=== PATIENT | female | born 1950 | race African-American/Black ===

== ENCOUNTER 2017-01-31 17:06 | Inpatient (IN) ==
--- NOTE | 2017-01-31 17:58 | Diag Imaging Result Doc PS360 ---
EXAM: CT HEAD W/O CONTRAST INDICATION: Left side weakness TECHNIQUE: Dose reduction protocol was used. COMPARISON: None. FINDINGS: There is patchy low attenuation in the periventricular and subcortical white matter suggesting at least moderate microangiopathy. There is no definite acute infarct given the limited sensitivity of CT versus MRI. There is no discrete intracranial mass, mass effect, or intracranial hemorrhage. The surrounding soft tissues and bony structures are essentially unremarkable. IMPRESSION: Findings suggesting at least moderate white matter microangiopathy but no definite acute intracranial pathology. Electronically signed by Demetri Tena 01/31/2017 5:56 PM
[2017-01-31 18:13] LABS: MANUAL DIFF NEEDED? NO
[2017-01-31 18:19] LABS: BASO% 0.3 % (0.0-0.8); EOS# 0.16 X1000 (0.0-0.7); EOS% 2.2 % (0.0-10.0); HEMATOCRIT 26.1 % (37.0-47.0); HEMOGLOBIN 8.8 g/dL (12.0-16.0); LYMPH# 3.16 X1000 (1.2-3.4); LYMPH% 44.1 % (20.5-51.1); MCH 29.7 PG (27-31); MCHC 33.7 g/dL (33-37); MCV 88.2 FL (81-99); MONO# 0.66 X1000 (0.11-0.59); MONO% 9.2 % (1.7-9.3); MPV 10.8 FL (7.4-10.4); NEUT% 44.2 % (42.2-75.2); PLT 194 X1000 (130-400); RBC 2.96 XMIL (4.2-5.4)
--- NOTE | 2017-01-31 18:22 | Diag Imaging Result Doc PS360 ---
EXAM: CHEST-1 VIEW INDICATION: wheelchair TECHNIQUE: One view COMPARISON: 08/18/2015 FINDINGS: Inspiration is suboptimal. The lungs are grossly clear. There is no discrete pleural fluid collection or pneumothorax. The cardiomediastinal silhouette and central vasculature are grossly unremarkable. IMPRESSION: No evidence of acute pathology by plain radiograph. Electronically signed by Demetri Tena 01/31/2017 6:20 PM
[2017-01-31] MEDS ORDERED: ASPIRIN PO ONE (18:25)
[2017-01-31] MEDS ORDERED: LIPITOR PO ONE (18:28)
[2017-01-31 19:06] LABS: ALBUMIN 3.6 g/dL (3.5-5.0); CALCIUM 9.2 mg/dL (8.8-10.2); POTASSIUM 3.8 mmol/L (3.5-5.1); TOTAL BILIRUBIN 0.44 mg/dL (0.20-1.00); TOTAL PROTEIN 6.1 g/dL (6.3-8.3)
[2017-01-31 19:27] LABS: CK INDEX 1.5 (0.0-2.5); CK-MB 6.61 ng/mL (0.0-5.0)
[2017-01-31 20:11] LABS: URINE SOURCE CLEAN CATCH
[2017-01-31 20:16] LABS: BILIRUBIN URINE NEGATIVE (NEGATIVE); BLOOD URINE SMALL (NEGATIVE); COLOR YELLOW; GLUCOSE URINE TRACE mg/dL (NEGATIVE); LEUKOCYTES URINE MODERATE (NEGATIVE); NITRITE URINE NEGATIVE (NEGATIVE); PH URINE 8.5; PROTEIN URINE 600 mg/dL (NEGATIVE); SP GRAVITY URINE 1.007; TURBIDITY URINE HAZY (CLEAR); UROBILINOGEN URINE NORMAL (NORMAL)
[2017-01-31 20:18] LABS: URINE MICRO REVIEW NEEDED? YES
[2017-01-31 20:20] LABS: UR EPITHELIAL CELLS >10 /HPF (<10); URINE BACTERIA NEGATIVE /HPF; URINE CULTURE NEEDED? YES; URINE RBC <10 /HPF (<10)
[2017-01-31 20:28] LABS: URINE SMALL ROUND CELLS RENAL PRESENT
--- NOTE | 2017-01-31 21:59 | PROVIDER DOCUMENTATION ---
This chart was entered by Dejah Raymond Scribe, acting as scribe for Ever Armstrong DO. HPI-Neurological Disorder - General Chief Complaint: Stroke-Like Symptoms Stated Complaint: STROKE SYMPTOMS Time Seen by Provider: 01/31/17 18:05 Source: patient Allergies/Adverse Reactions: Patient Allergies Allergy/AdvReac Type Severity Reaction Status Date / Time No Known Allergies Allergy Verified 01/31/17 17:57 Home Medications: Home Medication List Medication Instructions Recorded Confirmed Last Taken Type Calcitriol 1 cap PO DAILY 02/18/12 01/31/17 01/31/17 07:00 History Ezetimibe [Zetia] 10 mg PO DAILY 02/18/12 01/31/17 01/31/17 07:00 History Folic Acid 1 mg PO DAILY 02/18/12 01/31/17 01/31/17 07:00 History Levothyroxine [Synthroid] 50 microgm PO DAILY 02/18/12 01/31/17 01/31/17 07:00 History Colton-3 Acid Ethyl Esters [Lovaza] 1 cap PO DAILY 02/18/12 01/31/17 01/31/17 07: 00 History Potassium Gluconate [Potassium] 10 meq PO DAILY 02/18/12 01/31/17 01/31/17 07: 00 History Amlodipine Besylate [Amlodipine 5 mg PO QHS 01/31/17 01/31/17 01/30/17 21:00 History Besylate] Atorvastatin Calcium [Lipitor] 80 mg PO DAILY 01/31/17 01/31/17 01/31/17 07:00 History Cinacalcet [Sensipar] 30 mg PO DAILY 01/31/17 01/31/17 01/31/17 07:00 History Folic Acid/Vitamin B Comp W-C 1 tab PO DAILY 01/31/17 01/31/17 01/31/17 07:00 History [Nephrocaps] Furosemide [Lasix] 40 mg PO BID 01/31/17 01/31/17 01/31/17 07:00 History Sevelamer Carbonate [Renvela] 800 mg PO TID 01/31/17 01/31/17 01/31/17 12:00 History - History of Present Illness-Neuro Nature of Presenting Problem: 66 year old F presents to the ED with a cc of left sided weakness and tingling sensation and slurred speech with an onset of just PEPPER CUTTER. Denies fever, chills, nausea, and vomiting. Severity: reports: mild Onset/Duration: reports: just prior to arrival Timing: reports: still present Context: reports: impaired speech Character of Deficits: reports: new weakness New weakness or altered sensation location:: reports: LUE, LLE Associated Symptoms: reports: slurred speech Similar Symptoms Previously?: No Recently seen or treated by another doctor?: No Review of Systems - Adult - REVIEW OF SYSTEMS - ADULT Constitutional: denies: chills, fever Eyes: reports: no symptoms reported Ears, Nose, Mouth & Throat: reports: no symptoms reported Cardiovascular: reports: no symptoms reported Respiratory: denies: cough, shortness of breath Gastrointestinal: reports: no symptoms reported Genitourinary: reports: no symptoms reported Musculoskeletal: reports: muscle weakness. denies: muscle aches Integumentary: denies: skin sores/ulcer, skin thickening Neurological: reports: paresthesia, slurred speech. denies: dizziness/vertigo, headache/migraines Psychiatric: reports: no symptoms reported Endocrine: reports: no symptoms reported Hematologic/Lymphatic: reports: no symptoms reported Allergic/Immunologic: reports: no symptoms reported All Other Systems: Reviewed and Negative Past History - Adult - PAST MEDICAL HISTORY-ADULT Review of Records: reports: Nursing Assessment Review, Medications Reviewed Cardiovascular: reports: HTN, hyperlipidemia Respiratory: reports: sleep apnea Genitourinary: reports: dialysis (peritoneal Mar 2011), ESRD Endocrine/Immune: reports: thyroid disorder - PRIOR SURGERIES/PROCEDURES Surgical/Procedure History: reports: indwelling device - IMMUNIZATION STATUS Childhood Immunizations: See Nurse Assessment Flu Vaccine: See Nurse Assessment - SOCIAL HISTORY Smoking: non-smoker Substance Use: none/never Alcohol Use Frequency: never Living Situation: family Physical Exam- Neurological - Physical Exam-Neuro Initial Vital Signs Reviewed: Yes General Appearance: alert Eye Exam: bilateral eye: normal inspection, PERRL, EOMI Respiratory: chest non-tender, lungs clear, normal breath sounds Cardiovascular: normal peripheral pulses, regular rate, rhythm, no edema Abdominal Exam: normal bowel sounds, non tender, soft Neurologic: aphasia (Wernickie's) Integumentary: normal color, normal turgor, warm/dry Progress - PLAN OF CARE/RESULTS Progress/Plan/Lab Results: Vital Signs - 8 hr 09/21/17 17:12 01/31/17 20:24 Temperature 98.1 F Pulse Rate 98 H 82 Respiratory Rate 16 18 Blood Pressure 159/86 196/97 O2 Sat by Pulse Oximetry 100 97 Laboratory Results - last 24 hr 01/31/17 01/31/17 01/31/17 17:19 18:07 18:07 WBC 7.16 RBC 2.96 L Hgb 8.8 L Hct 26.1 L MCV 88.2 MCH 29.7 MCHC 33.7 RDW Std Deviation 13.2 Plt Count 194 MPV 10.8 H Immature Gran % (Auto) 0.0 Neut % (Auto) 44.2 Lymph % (Auto) 44.1 [place] % (Auto) 9.2 Eos % (Auto) 2.2 Baso % (Auto) 0.3 Immature Gran # (Auto) 0.00 Neut # (Auto) 3.16 Lymph # (Auto) 3.16 [place] # (Auto) 0.66 H Eos # (Auto) 0.16 Baso # (Auto) 0.02 Sodium 134 L Potassium 3.8 Chloride 90 L Carbon Dioxide 27 Anion Gap 17 BUN 38 H Creatinine 12.6 H* Estimated GFR/1.73 m2 4 BUN/Creatinine Ratio 3 Glucose 109 H POC Glucose 113 H Calculated Osmolality 278 Calcium 9.2 Total Bilirubin 0.44 AST 23 ALT 14 Alkaline Phosphatase 43 Creatine Kinase 430 H Creatine Kinase Index 1.5 CK-MB (CK-2) 6.61 H Troponin T Total Protein 6.1 L Albumin 3.6 Globulin 2.5 Albumin/Globulin Ratio 1.4 Urine Source Urine Color Urine Turbidity Urine pH Ur Specific Corder Urine Protein Ur Glucose (Stick) Ur Ketones (Stick) Urine Blood Urine Nitrite Urine Bilirubin Urobilinogen Dipstick Urine Leukocytes Urine WBC (Auto) Urine RBC (Auto) U Epithel Cells (Auto) Urine Bacteria (Auto) Urine Crystals Small Round Cells Urine Casts Urine Yeast-like Cells 01/31/17 01/31/17 18:07 19:35 WBC RBC Hgb Hct MCV MCH MCHC RDW Std Deviation Plt Count MPV Immature Gran % (Auto) Neut % (Auto) Lymph % (Auto) [place] % (Auto) Eos % (Auto) Baso % (Auto) Immature Gran # (Auto) Neut # (Auto) Lymph # (Auto) [place] # (Auto) Eos # (Auto) Baso # (Auto) Sodium Potassium Chloride Carbon Dioxide Anion Gap BUN Creatinine Estimated GFR/1.73 m2 BUN/Creatinine Ratio Glucose POC Glucose Calculated Osmolality Calcium Total Bilirubin AST ALT Alkaline Phosphatase Creatine Kinase Creatine Kinase Index CK-MB (CK-2) Troponin T 0.022 Total Protein Albumin Globulin Albumin/Globulin Ratio Urine Source CLEAN CATCH Urine Color YELLOW Urine Turbidity HAZY Urine pH 8.5 Ur Specific Corder 1.007 Urine Protein 600 A Ur Glucose (Stick) TRACE Ur Ketones (Stick) NEGATIVE Urine Blood SMALL A Urine Nitrite NEGATIVE Urine Bilirubin NEGATIVE Urobilinogen Dipstick NORMAL Urine Leukocytes MODERATE A Urine WBC (Auto) 10-20 A Urine RBC (Auto) <10 U Epithel Cells (Auto) >10 A Urine Bacteria (Auto) NEGATIVE Urine Crystals Not Reportable Small Round Cells RENAL PRESENT Urine Casts Not Reportable Urine Yeast-like Cells NONE SEEN Orders Category Date Time Status Saline Loc NOW Care 01/31/17 17:20 Active CHEST-1 VIEW [RAD] Stat Exams 01/31/17 17:[address] HEAD W/O CONTRAST [CT] Stat Exams 01/31/17 17:21 Completed CBC WITH ELECTRONIC DIFF [HEME] Stat Lab 01/31/17 18:07 Completed CK PROFILE [SP CHEM] Stat Lab 01/31/17 18:07 Completed COMPREHENSIVE METABOLIC PANEL [CHEM] Stat Lab 01/31/17 18:07 Completed TROPONIN T Stat Lab 01/31/17 18:07 Completed URINALYSIS W/POSS RFLX CULT-1 [URINALYSIS] Stat Lab 01/31/17 19:35 Completed URINE CULTURE [RM] Routine Lab 01/31/17 20:44 Received URINE MANUAL MICROSCOPIC [URINALYSIS] Stat Lab 01/31/17 19:35 Completed ATORVAstatin [Lipitor] Med 01/31/17 18:28 Discontinued 80 mg PO NOW ONE Aspirin Med 01/31/17 18:25 Discontinued 325 mg PO NOW ONE EKG [EKG] Stat Ther 01/31/17 17:20 Ordered EKG [EKG] Stat Ther 01/31/17 18:09 Ordered Transfer/Admit Order [TRANSFER] Routine Transfer 01/31/17 20:32 Ordered sPOKE WITH ROMINA THE NURSE PRACTITIONER AND HE HAS ACCEPTED THE ADMISSION. Result Diagrams: 01/31/17 18:07 01/31/17 18:07 - CONSULTS/PCP/HOSPITALIST Notification #1 *Consult/PCP/Hospitalist*: Dr. Shrestha(hospitalist) Time Discussed: 18:39 Reason/Comments: consult for admission Consult Disposition: Admit Departure - Departure Date of Disposition Decision: 01/31/17 Time of Disposition Decision: 21:57 DIAGNOSIS: TIA (transient ischemic attack) Disposition: ADMITTED INPATIENT 09 Certified Medical Emergency: Emergent Condition: Critical - Critical Care Note This patient required my direct & personal management of CC.: No Attestation - Physician/ PRAVIN Attestation Patient care was provided by Advanced Practice Provider:: No The physician spent face to face time with patient:: Yes Advanced Practice Provider documentation review:: Supervising physician onsite and consulted in the evaluation and care of this patient. The physician did have a face to face encounter with the patient. This chart was documented by the indicated scribe, (Dejah Raymond Scribe) and accurately reflects the services I performed and decisions made by me, Ever Armstrong DO, as attested by the provider's signature.
[2017-01-31] MEDS: TYLENOL PO PRN (23:44)
[2017-02-01] MEDS ORDERED: ZOFRAN IV PRN (01:30)
[2017-02-01] MEDS ORDERED: ROCEPHIN 1 GM in NS 50 ML IV SCH (02:00)
[2017-02-01 02:17] LABS: INR 0.96; PROTIME 10.1 Seconds (9.2-11.7); PTT 22.9 Seconds (22.0-36.0)
[2017-02-01 02:58] LABS: MANUAL DIFF NEEDED? NO
[2017-02-01 03:03] LABS: BASO% 0.3 % (0.0-0.8); EOS# 0.12 X1000 (0.0-0.7); EOS% 1.1 % (0.0-10.0); HEMATOCRIT 24.8 % (37.0-47.0); HEMOGLOBIN 8.4 g/dL (12.0-16.0); IMM GRAN# 0.04 X1000 (0.0-0.04); IMM GRAN% 0.4 % (0.0-0.5); LYMPH# 3.52 X1000 (1.2-3.4); LYMPH% 33.7 % (20.5-51.1); MCHC 33.9 g/dL (33-37); MCV 88.6 FL (81-99); MONO# 0.98 X1000 (0.11-0.59); MONO% 9.4 % (1.7-9.3); NEUT% 55.1 % (42.2-75.2); PLT 191 X1000 (130-400)
[2017-02-01 03:45] LABS: ALBUMIN 3.5 g/dL (3.5-5.0); CALCIUM 9.6 mg/dL (8.8-10.2); POTASSIUM 4.3 mmol/L (3.5-5.1)
[2017-02-01 03:46] LABS: CK INDEX 1.3 (0.0-2.5); CK-MB 4.8 ng/mL (0.0-5.0)
[2017-02-01 03:46] LABS: FERRITIN 1501 ng/mL (13-150)
--- NOTE | 2017-02-01 05:12 | EKG Report ---
Test Performed on : 01/31/2017 7:35:55 PM Test Reason : SOB Blood Pressure : / mmHG Vent. Rate : 081 BPM Atrial Rate : 081 BPM P-R Int : 144 ms QRS Dur : 074 ms QT Int : 430 ms P-R-T Axes : 049 000 136 degrees QTc Int : 499 ms Normal sinus rhythm. Minimal voltage criteria for LVH, may be normal variant Nonspecific ST and T wave abnormality Abnormal ECG When compared with ECG of 25-APR-2015 12:30, Nonspecific T wave abnormality now evident in Inferior leads QT has lengthened Unconfirmed Result
--- NOTE | 2017-02-01 06:26 | EKG Report ---
Test Performed on : 02/01/2017 06:05:14 AM Test Reason : TIA, Elevated Cardiac Enzymes Blood Pressure : / mmHG Vent. Rate : 084 BPM Atrial Rate : 084 BPM P-R Int : 158 ms QRS Dur : 072 ms QT Int : 392 ms P-R-T Axes : 059 018 084 degrees QTc Int : 463 ms Normal sinus rhythm. Nonspecific T wave abnormality Abnormal ECG When compared with ECG of 31-JAN-2017 19:35, (Unconfirmed) Nonspecific T wave abnormality no longer evident in Inferior leads Confirmed by Davion Rowland MD ([id number]) on 02/03/2017 1:21:43 PM
--- NOTE | 2017-02-01 08:38 | Diag Imaging Result Doc PS360 ---
EXAM: MRI BRAIN W/O CONTRAST HISTORY: TIA/Stroke TECHNIQUE: Axial, sagittal, and coronal images obtained in multiple sequences COMPARISON: None. FINDINGS: No recent infarct. There are moderate chronic microvascular ischemic changes. No mass or midline shift. No hydrocephalus. No epidural or subdural fluid collection. No sinus opacification. IMPRESSION: Chronic microvascular ischemic changes, but no recent infarct. Electronically signed by Shashank Gale 02/01/2017 8:36 AM
[2017-02-01] MEDS ORDERED: EPOGEN SUBQ ONE (10:00)
[2017-02-01] MEDS: RENVELA POWDER PACKET PO SCH ×3 (10:41→22:15)
[2017-02-01] MEDS: LOVAZA PO SCH (10:41)
[2017-02-01] MEDS: LASIX PO SCH ×2 (10:41→22:14)
[2017-02-01] MEDS: FOLIC ACID PO SCH (10:41)
[2017-02-01] MEDS: ROCALTROL PO SCH (10:42)
[2017-02-01] MEDS: NEPHROCAPS PO SCH (10:42)
[2017-02-01] MEDS: TYLENOL PO PRN (10:42)
[2017-02-01] MEDS: ASPIRIN PO SCH (10:42)
[2017-02-01] MEDS: ZETIA PO SCH (10:42)
[2017-02-01] MEDS: SENSIPAR PO SCH (10:42)
[2017-02-01] MEDS: SYNTHROID PO SCH (10:42)
[2017-02-01] MEDS: HEPARIN SUBQ SCH ×2 (10:43→22:15)
[2017-02-01 11:28] LABS: CK INDEX 1.4 (0.0-2.5); CK-MB 4.73 ng/mL (0.0-5.0)
--- NOTE | 2017-02-01 15:06 | HISTORY AND PHYSICAL ---
PRIMARY CARE PROVIDER: Dr. Mayer. STYLIST ASSISTANT: Dr. Paul. DATE AND TIME OF HISTORY AND PHYSICAL: 01/31/2017 AT 2300. CHIEF COMPLAINT: Stroke like symptoms. HISTORY OF PRESENT ILLNESS: Ms. Amor is a 66-year-old, female who presented to the ER later in the afternoon on January 31. Her family and who was present with her during her onset of symptoms stating that at approximately 5:30 p.m. on January 31 she had an onset of right-sided numbness and tingling which progressed to where she was unable to hold a phone with her right hand and was unable to move her right hand as well. During this time, though she was able to her left arm but did experience some reported tingling and numbness in her left arm as well. Also during this time, the patient began to have slurred speech and was also confused and was unable to recognize her . Her family reports that approximately 2 hours after her symptoms began that they began to resolve and within 2-3 hours her symptoms had completely resolved. The patient does have a history of hypertension, hyperlipidemia, but denied any previous history of stroke. She does have end stage renal disease and is on nightly peritoneal dialysis. Upon evaluation in the ER, patient's EKG showed normal sinus rhythm and nonspecific ST and T-wave abnormality at a rate of 81 with a QTc of 499. Head CT was negative for any acute intracranial pathology, there were findings suggesting at least moderate white microangiopathies. The patient states that prior to this episode today she had no previous similar episodes and had been feeling fine. She reported no complaints. At this time she does report a headache though denies any current dizziness, lightheadedness, visual disturbances, chest pain, shortness of breath, abdominal pain, nausea, vomiting, diarrhea or dysuria. The patient did state that she does have some occasional swelling in her extremities and takes Lasix for this. She also reported that she has began to notice that there has been a gradual decrease in her urine output, though no acute changes. At this time, she will be admitted for further treatment and evaluation. REVIEW OF SYSTEMS: A 12 point review of system was conducted with the patient and all were in except for pertinent positives mentioned in the above HPI. PAST MEDICAL HISTORY: 1. Hypertension. 2. Hyperlipidemia. 3. End stage renal disease currently on nightly peritoneal dialysis followed by Dr. Paul. 4. Hypothyroidism. 5. Sleep apnea. PAST SURGICAL HISTORY: Placement of peritoneal dialysis catheter. SOCIAL HISTORY: The patient denies any past or present tobacco, alcohol or illicit drug use. FAMILY HISTORY: Positive for her mother having history of heart disease. She reports that her father had a history of diabetes mellitus. She also has 2 siblings who have history of colon cancer. ALLERGIES: No known allergies. HOME MEDICATIONS: 1. Amlodipine 5 mg p.o. at bedtime. 2. Lipitor 80 mg p.o. daily. 3. Calcitriol 1 capsule p.o. daily. 4. Sensipar 30 mg p.o. daily. 5. Zetia 10 mg p.o. daily. 6. Folic acid 1 mg p.o. daily. 7. Nephrocaps 1 tablet p.o. daily. 8. Lasix 40 mg p.o. b.i.d. 9. Synthroid 50 mcg p.o. daily. 10. Lovaza 1 capsule p.o. daily. 11. Potassium 10 mEq p.o. daily. 12. Renvela 800 mg p.o. t.i.d. DIAGNOSTIC RESULTS: White blood cell count 7.16, hemoglobin 8.8, hematocrit 26.1, platelet count is 194. PT 10.1, INR 0.96, PTT is 22.9. Sodium 134, potassium 3.8, chloride 90. Bicarbonate 27, BUN 38, creatinine 12.6. Glucose 109, calcium 9.2. Liver function tests are within normal limits. CK 430. CK index 1.5. CK-MB 6.61. Troponin 0.022. Urinalysis was obtained via clean catch and positive for protein, small amount of blood, moderate leukocytes 10- [address] of the head showed no acute intracranial abnormality though did show findings suggesting at least a moderate white matter microangiopathy, as per Radiology. Chest x-ray showed no evidence of acute pathology, per Radiology. EKG showed normal sinus rhythm with a nonspecific ST and T-wave abnormality at a rate of 81 of a QTc of 499. PHYSICAL EXAMINATION: VITAL SIGNS: Temperature 98.8 degrees, heart rate 82, respirations 18, blood pressure 171/74. Oxygen saturation is 100% on room air. GENERAL: Ms. Amor is a pleasant 66-year-old female who is resting comfortably in the inpatient bed. She was in no acute distress. She was awake, alert, and able to answer all questions appropriately. HEENT: Head is atraumatic, normocephalic. Pupils are equal, round, reactive to light, 3 mm bilaterally and brisk. Oral mucosa is moist. Oropharynx is clear. NECK: Supple. Trachea midline. No carotid bruits noted upon auscultation bilaterally. CARDIOVASCULAR: Patient has normal S1, S2. No murmurs, gallops, or rub appreciated with a regular rate and rhythm. PULMONARY: The patient has symmetrical chest expansion bilaterally. Lung sounds are clear to auscultation in bilateral donnelly. ABDOMEN: Soft, nontender. Distended bowel sounds were present in all 4 quadrants. Patient does have a peritoneal dialysis catheter noted to the right abdomen. EXTREMITIES: No cyanosis, clubbing or edema noted. Pulse, motor, and sensory are in intact in all extremities. Pedal pulses are 2+ bilaterally. INTEGUMENTARY: The patient's skin color for her race, is dry, and intact. No lesions or sores noted. NEUROLOGICAL: Patient is alert and oriented x4. Cranial nerves 2-12 are grossly intact. She has no facial droop noted. Speech is clear at this time. She has equal hand grasp and muscle strength bilaterally. ASSESSMENT AND PLAN: 1. Transient ischemic attacks. Given that the patient's symptoms resolved within 2-3 hours this is likely a TIA. We have placed orders for the patient to receive MRI in the morning. We will do an echocardiogram as well to rule out any further cardiac involvement. We will go ahead with repeat cardiac enzymes and EKG given that her CK was elevated. She denies any chest pain at this time. She will be placed on neurological checks q.4 hours. We will go ahead and order a lipid profile as well. We will continue her atorvastatin, Zetia and Lovaza, and her amlodipine though will monitor her blood pressures closely and may allow for some permissive hypertension at this time. We have also placed a neurology consult with Dr. López and will await their evaluation and further recommendations. 2. End-stage renal disease, on peritoneal dialysis. The patient did not bring any of her peritoneal dialysis equipment with her to the hospital. We did place a consult with Dr. Paul for further evaluation and management of this. He is aware of the patient and will see her tomorrow. He did not order for her to receive peritoneal dialysis tonight. 3. Hypertension. We will continue her amlodipine. 4. Hyperlipidemia. We will continue her home medications for this; Lovaza, Zetia and atorvastatin 5. Urinary tract infection. We have placed the patient on Rocephin 1 g IV q.24 hours and are awaiting a urine culture at this time. 6. Anemia. This is likely secondary to her chronic kidney disease though the patient has not had any recent labs to compare her current laboratory results to so we have placed an anemia profile and await those results. Continue to follow. 7. Hypothyroidism. We will continue her levothyroxine. She will be placed on the medical floor with telemetry. She will be on a renal and a heart healthy diet though will be NPO just after midnight until her morning labs are drawn for her lipid profile. DVT prophylaxis provided with heparin 5000 unit subcu q.12 hours. Further orders and recommendations pending hospital course, diagnostic studies and physician evaluation. Dictated by NEAL Lopez for Juan Jose Ram MD cc: Juan Jose Ram MD I have seen and examined patient. I have provided face to face evaluation. I have also reviewed his Labs and imagine studies. Patient presents with stroke like symptoms and severe hypertension. Will continue to address his BP and I agree the plan above. XIOMARA GUTIERREZ
--- NOTE | 2017-02-01 17:24 | CONSULTATION ---
DATE OF CONSULTATION: 02/01/2017 REASON FOR ADMISSION: Rule out CVA. REASON FOR CONSULTATION: RT management on peritoneal dialysis. CONSULTING PHYSICIAN: Juan Jose Ram MD HISTORY OF PRESENT ILLNESS: This is a 66-year-old female known to our service for end-stage renal disease on peritoneal dialysis. She routinely dialyzes with a cycler at night. The patient woke up with some slurred speech and some inability to manage movement to the right side. She was brought to the emergency room with this right-sided weakness and tingling sensation along with slurred speech that was fairly sudden in onset. She had workup completed that indicated this is likely a TIA. She was admitted to the hospital for further workup, treatment, and observation overnight. This morning she has no residual deficits. She does have a headache. She did not dialyze last night. PAST MEDICAL HISTORY: 1. End-stage renal disease on hemodialysis. 2. Hypertension. 3. Hyperparathyroidism. 4. Hyperphosphatemia. PAST SURGICAL HISTORY: She has a peritoneal dialysis catheter. ALLERGIES: No known drug allergies. HOME MEDICATIONS: 1. Folic acid. 2. Zetia. 3. Synthroid. 4. Calcitriol. 5. Potassium. 6. Lovaza. 7. Nephrocaps. 8. Renvela. 9. Lipitor. 10.Amlodipine. 11.Sensipar. 12.Lasix. FAMILY HISTORY: Noncontributory. SOCIAL HISTORY: No ETOH, tobacco, or illicit drug use. She lives with family. PHYSICAL EXAMINATION: Vital signs: Temperature 98.6, pulse 82, respiratory rate 18, blood pressure 171/74. Intake 50 mL, output 10 mL. General: This is an elderly female resting in bed, awake and alert in no acute distress. HEENT: Normocephalic, atraumatic. PERRL. EOMI. Oral mucosa is moist. Neck: Supple. Trachea midline without JVD. Cardiovascular: Regular rate and rhythm. No murmur appreciated. Pulmonary: Equal excursion. She is clear bilaterally. Abdomen: Soft with positive bowel sounds. PD catheter noted. Extremities: No clubbing , cyanosis or edema. She is moving all extremities and has equal strength. Integumentary: Skin is warm and dry without rash or lesions. Neurologic: Grossly nonfocal. LABORATORY DATA: WBC 10.4, hemoglobin 8.4. Sodium 135, potassium 4.3, CO2 of 29, creatinine 13.7. ASSESSMENT AND PLAN: 1. End-stage renal disease on hemodialysis. BUN is 40, creatinine 13.7. This is not uncommon for peritoneal dialysis patients, within her normal range. Will put her on a cycler tonight with 4 exchanges, 2 L, 2 L dwell, 2.5% dialysate treatment, and 10-hour run time. If for some chance she is discharged to home, she will dialyze on her cycler at home on her routine prescription. 2. Electrolytes, acid base balance, anemia. Epogen. 3. Transient ischemic attack versus stroke. Followed by primary. 4. Hypertension. Currently controlled. Mildly elevated as appropriate status post question of cardiovascular event. Dictated by NEAL Meyer for Lalito Paul MD Data reviewed, discussed with Cedric Elias on 02/01/17. I agree with the above assessment and plan of care. cc: Lalito Paul MD MTDD
--- NOTE | 2017-02-01 20:58 | PROGRESS NOTE ---
DATE: 02/01/2017 SUBJECTIVE: This morning Ms. Amor referred to be doing a little better. Ms. Amor got admitted because she was cleaning and then got very dizzy, confused, some weakness in the right upper extremity that went to the left upper extremity. She was not able to picker box operator her cellphone from the ground. Her speech became slurred and she became completely confused. She was brought to the emergency department. In the emergency department, she was found to have a blood pressure of 159/86 that went up to 196/97 and then 178/100. This morning she refers to be doing a lot better. All the neurological symptoms have resolved. Confusion and general disorientation has improved. OBJECTIVE: Vital signs: Blood pressure is 178/88, pulse 81, respirations 19, temperature 97.9 degrees. General Examination: Ms. Amor is a 66-year-old, female. She is in bed, not in any distress. HEENT: Mucosa is pink and moist. Anicteric. Acyanotic. Neck: Supple. Chest: Good air entry bilateral. No crepitations. No rhonchi. Cardiovascular: Regular rate and rhythm. There are no murmurs, no rubs, no gallops. Abdomen: Soft. There is a PD catheter in place. There is an old infraumbilical surgical scar. There is no hepatosplenomegaly. Extremities: No pedal edema. The patient's face looks slightly puffy. She did not get any dialysis last night. LABORATORY DATA: WBC is 10.46, hemoglobin is 8.4, platelet count of 191,000. Chemistry: Sodium is 135, potassium is 4.5, chloride 91, bicarbonate is 29. The patient's creatinine is 13.7 but she has a history of renal. An MRI of the brain showed chronic microvascular ischemic changes but no recent infarct. ASSESSMENT: 1. Acute onset of global encephalopathy with very elevated blood pressure. I think this was probably hypertensive encephalopathy. MRI is unremarkable for acute infarct, however, patient does have changes of chronic ischemic manifestations for which I stressed to her the need for better blood pressure control. 2. Severe uncontrolled hypertension. We will increase the amlodipine to 10 mg and also start the patient on hydralazine with carvedilol for better blood pressure control. 3. End-stage renal disease. Patient is on peritoneal dialysis. Nephrology has been consulted. She is also on the transplant list. 4. Dyslipidemia. We will continue with medications. 5. Urinary tract infection. The patient with end-stage renal which means her urine will always be dirty. She does not complain of any burning when she pees. WBC is normal and patient was not febrile so I will go ahead and discontinue the antibiotics for today. 6. Anemia secondary to chronic kidney disease. 7. Hypothyroidism is stable. cc: Juan Jose Ram MD
[2017-02-01] MEDS ORDERED: LIPITOR PO SCH (21:00)
[2017-02-01] MEDS ORDERED: NORVASC PO SCH (21:00)
[2017-02-01] MEDS: NORVASC PO SCH (22:14)
[2017-02-01] MEDS: COREG PO SCH (22:19)
[2017-02-01] MEDS: APRESOLINE PO SCH (22:19)
[2017-02-02 06:18] LABS: MANUAL DIFF NEEDED? NO
[2017-02-02 06:21] LABS: BASO% 0.3 % (0.0-0.8); EOS# 0.26 X1000 (0.0-0.7); EOS% 3.3 % (0.0-10.0); HEMATOCRIT 26.1 % (37.0-47.0); HEMOGLOBIN 8.9 g/dL (12.0-16.0); IMM GRAN# 0.04 X1000 (0.0-0.04); IMM GRAN% 0.5 % (0.0-0.5); LYMPH# 3.73 X1000 (1.2-3.4); LYMPH% 47.4 % (20.5-51.1); MCH 29.7 PG (27-31); MCHC 34.1 g/dL (33-37); MONO# 0.56 X1000 (0.11-0.59); MONO% 7.1 % (1.7-9.3); MPV 10.9 FL (7.4-10.4); NEUT% 41.4 % (42.2-75.2); PLT 197 X1000 (130-400)
[2017-02-02] MEDS: SYNTHROID PO SCH (06:29)
[2017-02-02 06:50] LABS: CALCIUM 9.6 mg/dL (8.8-10.2); POTASSIUM 3.9 mmol/L (3.5-5.1)
[2017-02-02 08:01] VITALS: BP 157/83
[2017-02-02] MEDS: LASIX PO SCH (09:19)
[2017-02-02] MEDS: LOVAZA PO SCH (09:19)
[2017-02-02] MEDS: APRESOLINE PO SCH ×2 (09:19→13:42)
[2017-02-02] MEDS: SENSIPAR PO SCH (09:20)
[2017-02-02] MEDS: NORVASC PO SCH (09:20)
[2017-02-02] MEDS: RENVELA POWDER PACKET PO SCH ×2 (09:20→13:41)
[2017-02-02] MEDS: FOLIC ACID PO SCH (09:20)
[2017-02-02] MEDS: ROCALTROL PO SCH (09:20)
[2017-02-02] MEDS: HEPARIN SUBQ SCH (09:20)
[2017-02-02] MEDS: ASPIRIN PO SCH (09:20)
[2017-02-02] MEDS: ZETIA PO SCH (09:20)
[2017-02-02] MEDS: NEPHROCAPS PO SCH (09:20)
[2017-02-02] MEDS: COREG PO SCH (09:20)
--- NOTE | 2017-02-02 12:36 | ECHO REPORT ---
ORDER DATE: 02/01/2017 MEASUREMENTS: Left ventricular end-diastolic diameter 4.2 and systolic diameter 3.1. Septal thickness 1.4, left atrium 3.8, aortic root 3.0. SUMMARY: 1. Fair quality study. 2. Mild aortic valve sclerosis demonstrated with adequate aortic valve opening evident. Peak gradient across the aortic valve is 14 mmHg. Mild thickening of mitral valve leaflets demonstrated with adequate mitral valve opening evident. There is very mild mitral regurgitation. Tricuspid and pulmonic valves are without structural abnormality with mild tricuspid regurgitation. Estimated systolic PA pressure by Doppler is 35 mmHg. The aortic root is normal in size. 3. Normal left ventricular chamber size with mild concentric left hypertrophy is demonstrated. Estimated left ventricular ejection fraction appears to be at least 55%. No regional wall motion abnormalities are evident. Doppler suggests grade 1 left ventricular diastolic dysfunction. Left atrium is upper normal in size. Right atrium and right ventricle are normal in size with normal right ventricular systolic function. 4. No pericardial effusion. 5. Appearance of inferior vena cava suggests normal central venous pressure. cc: Monico Donald MD
--- NOTE | 2017-02-02 21:18 | DISCHARGE SUMMARY ---
ADMISSION DATE: 01/31/2017 DISCHARGE DATE: 02/02/2017 DISPOSITION: Home. FOLLOWUP: 1. Dr. Mayer PCP. 2. Dr. Paul. IMAGING STUDIES: Of significance, a CT scan of the head was done on presentation which shows at least moderate white matter microangiopathy but no definite acute intracranial pathology. Echocardiogram was also done,which showed an EF of 55% with no regional wall motion abnormality evident. The Doppler suggests a grade left ventricular diastolic dysfunction. An MRI of the brain shows chronic microvascular ischemic changes but no recent infarct. ADMISSION DIAGNOSES: 1. Transient ischemic attack. 2. End-stage renal disease on peritoneal dialysis. 3. Hypertension. 4. Suspected urinary tract infection. 5. Anemia. DIAGNOSIS AT THE TIME OF DISCHARGE: 1. Acute onset of altered mental status secondary to global encephalopathy likely from hypertensive encephalopathy. 2. Transient ischemic attack resolved. 3. Severe uncontrolled hypertension. 4. End stage renal disease on peritoneal dialysis. 5. Dyslipidemia. 6. Anemia of chronic disease. 7. Hypothyroidism stable. DISCHARGE MEDICATIONS: 1. Folic acid 1 tab daily. 2. Levothyroxine 50 mcg daily. 3. Calcitriol 0.25 mcg daily. 4. Hodges-3 fatty acid. Sevelamer 800 two times per day. 1. Atorvastatin 80 mg daily. 2. Amlodipine 5 mg b.i.d. 3. Furosemide 80 mg b.i.d. 4. Aspirin 81 mg daily. 5. Hydralazine 25 mg 3 times per day. 6. Carvedilol 6.25 b.i.d. PRESENTING COMPLAINT: Stroke-like symptoms. HISTORY OF PRESENTING COMPLAINT: Ms Amor is a 66-year-old female who presented to the emergency department because of some weakness to the right side and slurred speech and also inability to picking supervisor her phone on the ground. Upon presentation patient was evaluated. Her blood pressure was 159/86 that went to 196/97. Patient was subsequently admitted to rule out possible stroke. HOSPITAL COURSE: Patient did pretty well during the hospital stay. Her neurological symptoms resolved once her blood pressure became well controlled. We did some additions to her blood pressure medications and this morning blood pressure is 157/83, she does not have any more neurological symptoms, no sign. MRI was unremarkable for any acute infarct. Patient had a dialysis last night. She is going to be discharged. She will follow up with Dr. Paul, continue with her dialysis and also follow up with her primary care to keep a very good control of her blood pressure. At the time of discharge Ms Amor was in a very stable condition. DISPOSITION: Home. ACTIVITY: As tolerated. DIET: To be healthy heart and renal diet. All the discharge instructions have been discussed with Ms. Amor and the family members that were in the room at the time of encounter. All her questions were answered. TIME SPENT FOR DISCHARGE: 37 minutes. cc: Juan Jose Ram MD
--- NOTE | 2017-02-02 22:08 | PROGRESS NOTE ---
DATE: 02/02/2017 SUBJECTIVE: Patient resting in bed. She believes she may go home today. She has no deficits from previous event. OBJECTIVE: Vital Signs: Temperature 97.7 degrees, pulse 77, respiratory rate 17, blood pressure 157/83, intake 480 mL, output 1.4 L. PHYSICAL EXAMINATION: General: This is a elderly female resting in bed. She is awake, alert, no acute distress. HEENT: Normocephalic, atraumatic. SKIP, conjunctivae pink. Neck: Supple. Trachea midline. No JVD. Cardiovascular: Regular rate and rhythm. Pulmonary: Equal excursion, she is clear. Abdomen: Soft, positive bowel sounds. PD catheter noted clean, dry and intact. Integumentary: Skin is warm and dry. Extremities: No clubbing, cyanosis or edema. LAB DATA: WBC of 7.8, hemoglobin 8.9, sodium 138, potassium 3.9, CO2 30, creatinine 14.0, BUN 40. ASSESSMENT AND PLAN: 1. End-stage renal disease on peritoneal dialysis. If she remains in the hospital tonight will run her on the cycler otherwise she will continue her treatment at home. 2. Transient ischemic attack versus stroke followed by primary cardiology. 3. Hypertension currently controlled. Dictated by NEAL Meyer for Lalito Paul MD cc: Lalito Paul MD
--- NOTE | 2017-02-03 09:47 | Carotid Study ---
DATE: 02/01/2017 PROCEDURE: Carotid duplex imaging. REFERRING PHYSICIAN: Dr. Ram INTERPRETING PHYSICIAN: Dr. Blanc [facility]: [place] INDICATIONS: 1. TIA versus CVA with residual right-sided numbness and weakness. 2. Dizziness. OBSERVED DATA RIGHT LEFT Brachial Blood Pressure Carotid Pulse Bruits: Carotid/Sub DIAGRAM OF ULTRASOUND IMAGING R L RIGHT INT EXT INT EXT LEFT Loy (cm/s) Loy (cm/s) Subclavian 79/0 Subclavian 72/0 CCA Proximal 62/12 CCA Proximal 76/23 CCA Distal 57/14 CCA Distal 56/17 Bulb 51/14 Bulb 52/10 ICA Proximal 62/16 ICA Proximal 64/24 ICA Mid 68/23 ICA Mid 77/28 ICA Distal 88/26 ICA Distal 87/34 ECA 52/7 ECA 48/17 Vertebral 64/15 A Vertebral 64/26 A ICA/CCA Ratio 1.45 ICA/CCA Ratio 1.16 % Stenosis 0 to 39 % Stenosis 0 to 39 FINDINGS: Minimal atherosclerosis at this time by strict velocity criteria does not produce a hemodynamically significant flow limiting stenosis. Both vertebral arteries are antegrade flow. PHYSICIAN INTERPRETATION: By strict velocity criteria, no hemodynamically significant flow limiting stenosis noted to bilateral carotid arteries. cc: Oscar Blanc MD
--- NOTE | 2017-02-20 22:15 | ED EKG INTERP ---
This chart was entered by Dejah Raymond Scribe, acting as scribe for Alin Esparza MD. EKG Interpretation - EKG Time of EKG reading by physician:: 19:35 EKG Read and Signed by:: Alin Esparza EKG Interpretation (*Must complete 3 of following elements*): Abnormal Rate: 81 Rhythm: NSR QRS: LVH ST Wave: non-specific ST changes Attestation - Physician/ PRAVIN Attestation The physician spent face to face time with patient:: No Advanced Practice Provider documentation review:: Supervising physician onsite and consulted in the evaluation and care of this patient. The physician did not have a face to face encounter with the patient. This chart was documented by the indicated scribe, (Dejah Raymond Scribe) and accurately reflects the services I performed and decisions made by me, Alin Esparza MD, as attested by the provider's signature.
== END 2017-02-02 15:56 | disposition home or self-care (01) ==
LOC: ED 17:06 → 3N 21:46 → SUATTDRO 21:46
PROVIDERS: ATTEND Internal Medicine